=== PATIENT | female | born 1965 | race Caucasian/White ===

== ENCOUNTER 2016-08-06 21:38 | Emergency (ER) | payer OTHER ==
[2016-08-06 22:10] VITALS: BP 111/75; PULSE 78; RESP 16; TEMP 97.5; O2SAT 98
[2016-08-06] MEDS ORDERED: AUGMENTIN(FRIDGE) 400 MG/5 ML PO ONE (22:13)
[2016-08-06] MEDS ORDERED: AMOXIL/CLAVULANATE 400/5 ML PDR ONE (22:18)
== END 2016-08-06 22:29 | disposition home or self-care (01) | DRG 153 ==
LOC: ED 21:38
DX: H66.001 Acute suppurative otitis media without spontaneous rupture of ear drum, right ear (principal)
CPT/HCPCS: 99282; 99283